=== PATIENT | male | born 1970 | race Caucasian/White ===

== ENCOUNTER 2022-11-14 19:13 | Emergency (ER) | payer OTHER ==
[2022-11-14 19:18] VITALS: BP 128/84; PULSE 82; RESP 18; TEMP 97.8; BMI 31.2
[2022-11-14] MEDS ORDERED: FLUORESCEIN NA 1 EA STRIP OS ONE (19:52)
[2022-11-14] MEDS ORDERED: TETRACAINE 0.5% HCL 0.6ML DROPPER.BOTTLE OS ONE (19:53)
[2022-11-14] MEDS ORDERED: FLUORESCEIN NA 1 EA STRIP ONE (19:55)
[2022-11-14] MEDS ORDERED: TETRACAINE 0.5% OPHTH SOLN 2 ML BOTTLE ONE (19:55)
[2022-11-14] MEDS ORDERED: ACETAMINOPHEN 325 MG TABLET (FP) PO ONE (20:15)
[2022-11-14 20:16] LABS: BASO % 0.9 % (0-2.0); EOS % 2.9 % (0-4.5); HEMATOCRIT 47.9 % (35.4-49); HEMOGLOBIN 16.3 GM/dL (11.7-16.9); LYMPH % 44.1 % (8-40); MEAN CELL VOLUME 88.3 fl (80-96); MEAN PLT VOLUME 6.5 fl (7.5-11.1); MONO % 8.7 % (3.8-10.2); NEUT % 43.4 % (42.8-82.8); PLATELET COUNT 251 10^3/uL (134-434); RBC 5.43 M/mm3 (4.00-5.60); RDW 13.5 % (11.9-15.9); WHITE BLOOD COUNT 8.4 K/mm3 (4.0-10.0)
[2022-11-14] MEDS ORDERED: ACETAMINOPHEN 325 MG TABLET (FP) ONE (20:43)
[2022-11-14 20:44] LABS: POTASSIUM 3.9 mmol/L (3.5-5.1)
[2022-11-14 20:46] LABS: ALBUMIN 4.3 g/dl (3.4-5.0); CALCIUM 9.3 mg/dL (8.5-10.1)
[2022-11-14 20:51] LABS: BILIRUBIN,TOTAL 0.4 mg/dL (0.2-1); TOT PROT 8.2 g/dl (6.4-8.2)
== END 2022-11-15 00:01 | disposition home or self-care (01) ==
LOC: JER 19:13
DX: H57.12 Ocular pain, left eye (principal); H53.8 Other visual disturbances; R07.9 Chest pain, unspecified; H11.32 Conjunctival hemorrhage, left eye
CPT/HCPCS: 36415; 71046-TC-FY; 80053; 84484; 85025; 93005; 93010; 99285-25